=== PATIENT | female | born 1935 | race Hispanic/Latino ===

== ENCOUNTER 2022-02-12 22:22 | Emergency (ER) | payer OTHER ==
--- NOTE | 2022-02-12 22:32 | Emergency Department Report ---
ED CPR HPI - General Chief Complaint: Cardiac Arrest/CPR Stated Complaint: CARDIAC ARREST Time Seen by Provider: 02/12/22 22:22 Source: EMS, RN notes reviewed Mode of arrival: Stretcher Limitations: Altered Mental Status - History of Present Illness Initial Comments: Patient is an 86-year-old female who presents emergency room with EMS and a full cardiac arrest. Report received from EMS. EMS states that the patient was initially called out as a lift assist and altered mental status. Patient was then placed in the ambulance and went into a cardiac arrest. The arrest was witnessed by EMS. EMS initiated CPR. Downtime approximately 20 to 25 minutes. EMS gave the patient 3 epi's. EMS intubated the patient. Per EMS, the patient has been asystole on the monitor the entire time. ET tube in good placement with bilateral breath sounds. EMS also started a left tibial IO. Radio report received from EMS 15 minutes prior to arrival. MD Complaint: collapsed during activity -: minute(s) Place: home Bystander CPR Performed: Yes AED Applied by Bystander/Assignment Officer: No Shock Advised: No Initial Findings in the Field: unresponsive, no respirations, no pulse ROSC in the Field: No Associated Injuries: No Treatments Prior to Arrival: intubation, BMV, chest compressions, epinephrine mgs # - Related Data Home Medications Medication Instructions Recorded Confirmed Last Taken ALPRAZolam [Xanax TAB] 0.25 mg PO BID PRN 03/29/15 03/29/15 Unknown Lovastatin [Altoprev] 40 mg PO QPM 03/29/15 03/29/15 Unknown Omeprazole [PriLOSEC] 20 mg PO QDAY 03/29/15 03/29/15 03/28/15 Triamter/Hctz 37.5-25 mg 1 tab PO QDAY 03/29/15 03/29/15 03/28/15 [Maxzide-25] glipiZIDE [glipiZIDE ER] 5 mg PO QAM 03/29/15 03/29/15 03/28/15 Allergies Allergy/AdvReac Type Severity Reaction Status Date / Time codeine Allergy Unknown Verified 03/29/15 02:24 ED Review of Systems ROS: Stated complaint: CARDIAC ARREST Other details as noted in HPI Comment: Unobtainable due to pts medical conditions ED Past Medical Hx - Past Medical History Previous Medical History?: Yes Hx Hypertension: Yes Hx Diabetes: Yes Additional medical history: Tinnitus - Surgical History Past Surgical History?: No - Family History Family history: no significant - Social History Smoking Status: Never Smoker Substance Use Type: None - Medications Home Medications: Home Medications Medication Instructions Recorded Confirmed Last Taken Type ALPRAZolam [Xanax TAB] 0.25 mg PO BID PRN 03/29/15 03/29/15 Unknown History Lovastatin [Altoprev] 40 mg PO QPM 03/29/15 03/29/15 Unknown History Omeprazole [PriLOSEC] 20 mg PO QDAY 03/29/15 03/29/15 03/28/15 History Triamter/Hctz 37.5-25 mg 1 tab PO QDAY 03/29/15 03/29/15 03/28/15 History [Maxzide-25] glipiZIDE [glipiZIDE ER] 5 mg PO QAM 03/29/15 03/29/15 03/28/15 History ED Physical Exam - General Limitations: Altered Mental Status, Physical Limitation General appearance: other - Head Head exam: Present: atraumatic, normocephalic - Eye Eye exam: Present: other (Pupils fixed and dilated) - ENT ENT exam: Present: mucous membranes dry, other (ET tube in place.) - Neck Neck exam: Present: normal inspection - Respiratory Respiratory exam: Present: decreased breath sounds, other (ET tube in place and bilateral breath sounds noted with bagging.) - Cardiovascular Cardiovascular Exam: Present: other (No pulse noted.) - GI/Abdominal GI/Abdominal exam: Present: soft - Extremities Exam Extremities exam: Present: other (Left tibial IO noted. Left tibial IO was functioning well. Placement verified.) - Skin Skin exam: Present: warm, dry, normal color. Absent: rash ED Course - Reevaluation(s) Reevaluation #1: Patient arrived via EMS. Report received from EMS. Patient transferred to our rney. CPR continued. Patient connected to a cardiac rehabilitation program director. ET tube placement verified. ET tube in good placement. 02/12/22 22:19 Reevaluation #2: Resuscitation efforts were terminated due to no signs of life. Patient had no cardiac motion. Patient was asystole on the monitor. Patient had no notable pulse. Code ran in accordance with ACLS guidelines. See nurse code note. 04/22/22 22:25 ED Medical Decision Making - Medical Decision Making Patient is an 86-year-old female that presents emergency room for cardiac arrest. . Patient resuscitation efforts were terminated after multiple rounds of CPR and medications due to no signs of life. EMS report received prior to EMS arriving to the hospital. EMS gave the patient several rounds of medications and chest compressions. Patient was intubated by EMS. Tube placement was verified. Patient also had access done with a left tibial IO. Tibial IO placement was verified. Code ran in accordance with ACLS guidelines. Family meeting will be done once the family arrives. Critical care time documented due to the multiple reassessments, prolonged time at the bedside, interpretation of cardiac rehabilitation program director. - Differential Diagnosis Cardiac arrest, PE, CO Critical Care Time: Yes Critical care time in (mins) excluding proc time.: 35 Critical care attestation.: If time is entered above; I have spent that time in minutes in the direct care of this critically ill patient, excluding procedure time. Critical Care Time: 35 minutes ED Disposition Clinical Impression: Cardiac arrest Disposition: 20 Is pt being admited?: No Does the pt Need Aspirin: No Condition: Undetermined Time of Disposition: 22:36
== END 2022-02-13 ==
LOC: ED 22:22
DX: I46.9 Cardiac arrest, cause unspecified (principal); I10 Essential (primary) hypertension; E11.9 Type 2 diabetes mellitus without complications; Z88.5 Allergy status to narcotic agent; Z79.899 Other long term (current) drug therapy
CPT/HCPCS: 92950; 99285